=== PATIENT | male | born 1965 | race Caucasian/White ===

== ENCOUNTER → 2020-03-24 | Day surgery (SDC) | payer OTHER ==
[~2020-03-24] MED LIST: BENAZEPRIL HCL10 MG PO; BYSTOLIC PO; CEPHALEXIN500 MG PO; EPHEDRINE SULFATE INJ 50 MG/ML VIAL ONE; ESCITALOPRAM OX20 MG PO; FENTANYL CITRATE/PF 100MCG/2 ML INJ ONE; GLUCAGON FOR INJ 1 MG VIAL ONE; HYDROCODON-ACE1 EA12 PO; HYOSCYAMINE 0.125 MG TAB ONE; MIDAZOLAM HCL 2 MG/2 ML VIAL ONE; OMEPRAZOLE40 MG PO; PROPOFOL IV EMULSION 10 MG/ML 20 ML VIAL ONE; PROTONIX20 MG PO; RANITIDINE HCL150 MG PO; ZOLPIDEM TARTRA10 MG PO
--- NOTE | 2020-03-24 07:15 | NUR ---
SPIRITUAL CARE - Pre-Surgery Assessment: Pt in bed. Pt's at bedside. Pt reported supportive attention from family and friends. Intervention: [employer] [place] provided pastoral presence, hospitality, and sympathetic listening. Acquainted pt with availability of test deskman while hospitalized. Outcome: Pt expressed appreciation for visit. No need for follow up indicated at this time. [facility] Spiritual Care Department O: [phone]
[2020-03-24 11:05] VITALS: BP 116/75
--- NOTE | 2020-03-27 07:46 | Operative Report ---
DATE OF PROCEDURE: 03/24/2020 SURGEON: Ld Lynn MD PROCEDURE: Colonoscopy with polypectomy. INDICATIONS FOR COLONOSCOPY: Colorectal cancer screening. MEDICATIONS: The patient was done under MAC. Please see anesthesiologist's note. PROCEDURE IN DETAIL: With the patient in left lateral decubitus position, a flexible fiberoptic Olympus colonoscope was inserted into the rectum with ease and advanced all the way to the cecum. Prep was suboptimal primarily in the right colon, but visualization was fair. The scope was then withdrawn slowly whatever was visualized. The mucosa overlying the cecum and ascending colon appeared to be within normal limits. A minute polyp was removed per cold biopsy forceps from the transverse colon. An approximately 4 mm polyp was removed per hot snare polypectomy from the proximal descending colon. The rest of the descending sigmoid and rectum appeared to be within normal limits. The scope was then retroflexed into the distal rectum and moderate-sized internal hemorrhoids were noted, none of which was actively bleeding. The scope was then straightened out, it was subsequently withdrawn. The patient tolerated the procedure well. IMPRESSION: 1. Suboptimal prep, but visualization was fair. 2. Transverse colon polyp, cold biopsied. 3. Descending colon polyp, hot snared. 4. Internal hemorrhoids, none actively bleeding. PLAN: Follow up histology. Initiate high-fiber, low-fat diet. Initiate high-fiber supplement. The patient might benefit from a followup colonoscopy in 3 years. Ld Lynn MD [facility] [place]/[facility] /[id number] cc: Nelson Julien DO
== END | disposition home or self-care (01) ==
LOC: OR 05:59
PROVIDERS: ATTEND Internal Medicine Gastroenterology
DX: Z12.11 Encounter for screening for malignant neoplasm of colon (principal); K63.5 Polyp of colon; K64.8 Other hemorrhoids; K21.9 Gastro-esophageal reflux disease without esophagitis; I10 Essential (primary) hypertension; Z01.810 Encounter for preprocedural cardiovascular examination; Z01.812 Encounter for preprocedural laboratory examination; Z11.59 Encounter for screening for other viral diseases
CPT/HCPCS: 45380; 45385; 93005; J1610; J2704; U0002; 45384; J2250; J3010